=== PATIENT | male | born 1945 | race Caucasian/White ===

== ENCOUNTER → 2018-04-20 | Outpatient (CLI) | payer OTHER | END | disposition home or self-care (01) | LOC: CFH 11:02 → EDBD 13:45 | PROVIDERS: ATTEND Student in an Organized Health Care Education/Training Program | DX: N63.10 Unspecified lump in the right breast, unspecified quadrant (principal); N64.4 Mastodynia; N62 Hypertrophy of breast; Z86.012 Personal history of benign carcinoid tumor | CPT/HCPCS: 76642; 77066 ==